=== PATIENT | male | born 1950 | race Caucasian/White ===

== ENCOUNTER → 2016-12-02 | Outpatient (CLI) | payer MEDICARE ==
[~2016-12-02] MED LIST: ADVIL200 M1 PO; ADVIL200 MG PO; ALLOPURINOL100 MG PO; AMLODIPINE10 MG PO; AMLODIPINE5 MG PO; ASPIRIN CHEWABL81 MG PO; ASPIRIN325 MG PO; ASPIRIN80 MG PO; B12,B-12,B 12500 MC1 PO; BETAPACE80 MG PO; CARDIZEM CD120 MG PO; CATAPRES-TTS 10.1 MG TD; CYMBALTA30 MG PO; Diltiazem180 MG PO; HYDR12.5C PO; K-DUR 2020 MEQ PO; K-Lor 20MEQ20 MEQ PO; K-Lyte/Cl25 MEQ PO; LANOXIN0.25 MG PO; LASIX40 MG PO; LEVAQUIN500 M2 PO; LISINOPRIL10 M1 PO; LISINOPRIL20 MG PO; LOPRESSOR100 MG PO; LOPRESSOR50 M1 PO; LORAZEPAM0.5 MG PO; METFORMIN1000 MG PO; MOBIC15 MG PO; Micro K10 MEQ PO; NADOLOL40 MG PO; PANTOPRAZOLE40 M1 PO; SOTALOL HCL80 MG PO; THERAGRAN1 TA1 PO; TOPROL XL100 MG PO; TOPROL XL50 M1 PO; XANAX0.25 MG PO; XARE20MG PO; XARELTO20 MG PO
[2016-12-02 09:16] LABS: BILIRUBIN NEGATIVE (NEGATIVE); BLOOD NEGATIVE (NEGATIVE); CLARITY CLEAR (CLEAR); COLOR YELLOW (YELLOW); GLUCOSE NEGATIVE (NEGATIVE); KETONE NEGATIVE (NEGATIVE); LEUKO ESTERASE NEGATIVE (NEGATIVE); NITRITE NEGATIVE (NEGATIVE); PH 6.5 (5.0-9.0); PROTEIN NEGATIVE (NEGATIVE); SPECIFIC GRAVITY 1.015 (1.005-1.030)
[2016-12-02 09:56] LABS: ALBUMIN 3.3 gm/dl (3.1-4.5); PHOSPHOROUS 2.6 mg/dL (2.5-4.9); POTASSIUM 4.1 mmol/L (3.5-5.1)
[2016-12-02 10:33] LABS: BACTERIA 1+
== END | disposition home or self-care (01) ==
LOC: LAB 08:52
PROVIDERS: Internal Medicine Nephrology
DX: I10 Essential (primary) hypertension (principal)

== ENCOUNTER → 2017-04-27 | Outpatient (CLI) | payer MEDICARE ==
[2017-04-27 08:36] LABS: BASO # 0.1 10*3/uL (0.0-0.1); BASO % 0.9 % (0.0-1.0); EOS # 0.3 10*3/uL (0.0-0.4); EOS % 5.1 % (1.0-4.0); HEMATOCRIT 41.6 % (42.0-52.0); HEMOGLOBIN 14.3 g/dl (14.0-18.0); LYMPH # 0.9 10*3/uL (1.3-4.4); LYMPH % 16.8 % (27.0-41.0); MEAN CELL VOLUME 84.6 fl (80.0-94.0); MEAN CORPUSCULAR HGB 29.1 pg (27.0-31.0); MEAN CORPUSCULAR HGB CONC 34.4 g/dl (33.0-37.0); MONO # 0.5 10*3/uL (0.1-1.0); MONO % 9.2 % (3.0-9.0); NEUT # 3.8 10*3/uL (2.3-7.9); NEUT % 67.6 % (47.0-73.0); PLATELET COUNT AUTOMATED 193 10*3/uL (130-400); RED BLOOD COUNT 4.92 10*6/uL (4.50-5.90); RED CELL DISTRI WIDTH 12.9 % (0-14.5); WHITE BLOOD COUNT 5.5 10*3/uL (4.8-10.8)
[2017-04-27 09:06] LABS: ALBUMIN 3.4 gm/dl (3.1-4.5); CREATININE 1.67 mg/dL (0.70-1.30); POTASSIUM 4.2 mmol/L (3.5-5.1); TOTAL PROTEIN 7.2 gm/dL (6.4-8.2)
[2017-04-27 09:15] LABS: THYROID STIM HORMONE (HS) 1.68 uIU/ml (0.358-4.75)
== END | disposition home or self-care (01) ==
LOC: LAB 08:16
PROVIDERS: Internal Medicine
DX: E11.9 Type 2 diabetes mellitus without complications (principal); I10 Essential (primary) hypertension; M10.071 Idiopathic gout, right ankle and foot

== ENCOUNTER → 2017-07-22 | Outpatient (CLI) | payer MEDICARE ==
[2017-07-22 09:10] LABS: BILIRUBIN NEGATIVE (NEGATIVE); BLOOD NEGATIVE (NEGATIVE); CLARITY CLEAR (CLEAR); COLOR YELLOW (YELLOW); GLUCOSE NEGATIVE (NEGATIVE); KETONE NEGATIVE (NEGATIVE); LEUKO ESTERASE NEGATIVE (NEGATIVE); NITRITE NEGATIVE (NEGATIVE); PH 5.5 (5.0-9.0)
[2017-07-22 09:28] LABS: ALBUMIN 3.1 gm/dl (3.1-4.5); CREATININE 1.98 mg/dL (0.70-1.30); PHOSPHOROUS 3.5 mg/dL (2.5-4.9); POTASSIUM 4.3 mmol/L (3.5-5.1)
[2017-07-22 09:48] LABS: BACTERIA TRACE
== END | disposition home or self-care (01) ==
LOC: LAB 07:56
PROVIDERS: Internal Medicine Nephrology
DX: I10 Essential (primary) hypertension (principal)

== ENCOUNTER → 2018-06-15 | Outpatient (CLI) | payer MEDICARE | END | disposition home or self-care (01) | LOC: RESCLI 08:01 | DX: I12.9 Hypertensive chronic kidney disease with stage 1 through stage 4 chronic kidney disease, or unspecified chronic kidney disease (principal); E11.22 Type 2 diabetes mellitus with diabetic chronic kidney disease; N18.9 Chronic kidney disease, unspecified; I48.0 Paroxysmal atrial fibrillation; K21.9 Gastro-esophageal reflux disease without esophagitis; G47.33 Obstructive sleep apnea (adult) (pediatric); M10.9 Gout, unspecified; N52.2 Drug-induced erectile dysfunction; F41.9 Anxiety disorder, unspecified; E78.5 Hyperlipidemia, unspecified ==

== ENCOUNTER → 2018-06-21 | Outpatient (CLI) | payer MEDICARE | END | disposition home or self-care (01) | LOC: LAB 07:58 | DX: Z12.5 Encounter for screening for malignant neoplasm of prostate (principal); I10 Essential (primary) hypertension; E79.0 Hyperuricemia without signs of inflammatory arthritis and tophaceous disease; Z79.899 Other long term (current) drug therapy ==

== ENCOUNTER → 2018-08-15 | Outpatient (CLI) | payer MEDICARE ==
[~2018-08-15] MED LIST changes: +ATIVAN1 MG PO; +BETAPACE120 MG PO; +GLUCOPHAGE1000 MG PO; +GLYBURIDE5 MG PO; +HYDR25T PO; +K-LOR 20MEQ20 ME1 PO; -K-Lor 20MEQ20 MEQ PO; -METFORMIN1000 MG PO; +ZESTRIL20 MG PO
== END | disposition home or self-care (01) ==
DX: I12.9 Hypertensive chronic kidney disease with stage 1 through stage 4 chronic kidney disease, or unspecified chronic kidney disease (principal); E11.22 Type 2 diabetes mellitus with diabetic chronic kidney disease; E11.319 Type 2 diabetes mellitus with unspecified diabetic retinopathy without macular edema; N18.3 Chronic kidney disease, stage 3 (moderate); I48.0 Paroxysmal atrial fibrillation; K21.9 Gastro-esophageal reflux disease without esophagitis; G47.33 Obstructive sleep apnea (adult) (pediatric); M10.9 Gout, unspecified; N52.2 Drug-induced erectile dysfunction; F41.9 Anxiety disorder, unspecified; E78.5 Hyperlipidemia, unspecified; Z79.899 Other long term (current) drug therapy; Z88.8 Allergy status to other drugs, medicaments and biological substances; Z79.82 Long term (current) use of aspirin

== ENCOUNTER → 2018-10-03 | Outpatient (CLI) | payer MEDICARE ==
[2018-10-03 14:47] LABS: BASO % 0.4 % (0.0-1.0); EOS # 0.3 10*3/uL (0.0-0.4); EOS % 5.7 % (1.0-4.0); HEMATOCRIT 41.5 % (42.0-52.0); HEMOGLOBIN 13.7 g/dl (14.0-18.0); LYMPH % 20.5 % (27.0-41.0); MEAN CELL VOLUME 85.4 fl (80.0-94.0); MEAN CORPUSCULAR HGB 28.2 pg (27.0-31.0); MEAN PLATELET VOLUME 9.3 fl (9.6-12.3); MONO # 0.7 10*3/uL (0.1-1.0); MONO % 13.8 % (3.0-9.0); NEUT % 59.4 % (47.0-73.0); PLATELET COUNT AUTOMATED 220 10*3/uL (130-400); RED BLOOD COUNT 4.86 10*6/uL (4.50-5.90); RED CELL DISTRI WIDTH 12.5 % (0-14.5); WHITE BLOOD COUNT 5.1 10*3/uL (4.8-10.8)
[2018-10-03 15:16] LABS: ALBUMIN 3.1 gm/dl (3.1-4.5); ALKALINE PHOSPHATASE 84 U/L (45-117); BUN 25 mg/dl (7-24); CHLORIDE 106 mmol/L (98-107); CHOLESTEROL 142 mg/dL (<200); CREATININE 1.35 mg/dL (0.70-1.30); HDL CHOLESTEROL 38 mg/dl (40-60); LDL CHOLESTEROL 76 mg/dL (9-159); SGOT/AST 14 IU/L (3-35); SGPT/ALT 18 U/L (12-78); SODIUM 141 mmol/L (136-145); TOTAL PROTEIN 7.4 gm/dL (6.4-8.2); TRIGLYCERIDES 141 mg/dl (<150); VLDL CHOLESTEROL 28 mg/dL (6-40)
== END | disposition home or self-care (01) ==
LOC: LAB 01:29 → RESCLI 01:29
PROVIDERS: Internal Medicine; Student in an Organized Health Care Education/Training Program
DX: Z12.5 Encounter for screening for malignant neoplasm of prostate (principal); I48.0 Paroxysmal atrial fibrillation; I12.9 Hypertensive chronic kidney disease with stage 1 through stage 4 chronic kidney disease, or unspecified chronic kidney disease; E11.22 Type 2 diabetes mellitus with diabetic chronic kidney disease; E11.319 Type 2 diabetes mellitus with unspecified diabetic retinopathy without macular edema; N18.3 Chronic kidney disease, stage 3 (moderate); K21.9 Gastro-esophageal reflux disease without esophagitis; G47.33 Obstructive sleep apnea (adult) (pediatric); M10.9 Gout, unspecified; N52.2 Drug-induced erectile dysfunction; E78.5 Hyperlipidemia, unspecified

== ENCOUNTER → 2019-01-03 | Outpatient (CLI) | payer MEDICARE ==
[2019-01-03 08:34] LABS: BASO # 0.1 10*3/uL (0.0-0.1); BASO % 0.8 % (0.0-1.0); EOS # 0.4 10*3/uL (0.0-0.4); EOS % 5.9 % (1.0-4.0); HEMATOCRIT 45.4 % (42.0-52.0); HEMOGLOBIN 15.2 g/dl (14.0-18.0); LYMPH # 1.3 10*3/uL (1.3-4.4); LYMPH % 21.1 % (27.0-41.0); MEAN CELL VOLUME 83.8 fl (80.0-94.0); MEAN CORPUSCULAR HGB CONC 33.5 g/dl (33.0-37.0); MEAN PLATELET VOLUME 9.5 fl (9.6-12.3); MONO # 0.6 10*3/uL (0.1-1.0); MONO % 9.6 % (3.0-9.0); NEUT # 3.7 10*3/uL (2.3-7.9); NEUT % 62.3 % (47.0-73.0); PLATELET COUNT AUTOMATED 208 10*3/uL (130-400); RED BLOOD COUNT 5.42 10*6/uL (4.50-5.90); RED CELL DISTRI WIDTH 13.2 % (0-14.5); WHITE BLOOD COUNT 5.9 10*3/uL (4.8-10.8)
[2019-01-03 08:46] LABS: BILIRUBIN NEGATIVE (NEGATIVE); BLOOD NEGATIVE (NEGATIVE); CLARITY CLEAR (CLEAR); COLOR YELLOW (YELLOW); GLUCOSE NEGATIVE (NEGATIVE); KETONE NEGATIVE (NEGATIVE); LEUKO ESTERASE TRACE (NEGATIVE); NITRITE NEGATIVE (NEGATIVE); PH 5.5 (5.0-9.0); SPECIFIC GRAVITY 1.025 (1.005-1.030)
[2019-01-03 08:57] LABS: ALBUMIN 3.3 gm/dl (3.1-4.5); CREATININE 1.46 mg/dL (0.70-1.30); PHOSPHOROUS 3.5 mg/dL (2.5-4.9); URIC ACID 9.6 mg/dL (3.5-7.2)
[2019-01-03 09:33] LABS: HYALINE CAST 0-2; MUCOUS 2+; RBC 0-2 rbc/hpf (0-2)
== END | disposition home or self-care (01) ==
LOC: LAB 08:02
PROVIDERS: Internal Medicine Nephrology
DX: I10 Essential (primary) hypertension (principal); E79.0 Hyperuricemia without signs of inflammatory arthritis and tophaceous disease; Z79.899 Other long term (current) drug therapy

== ENCOUNTER 2019-02-08 18:51 | Inpatient (IN) | payer MEDICARE ==
[2019-02-08] VITALS (9 sets, daily range): BP systolic 138–205; BP diastolic 60–90
[~2019-02-08] VITALS: Ht 187.9 cm; Wt 114.6 kg
--- NOTE | ~2019-02-08 | EKG ---
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
--- NOTE | ~2019-02-08 | EKG ---
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
--- NOTE | ~2019-02-08 | EKG ---
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
[~2019-02-08 18:51] MED LIST changes: -ATIVAN1 MG PO; -BETAPACE120 MG PO; -GLYBURIDE5 MG PO; -HYDR25T PO; -ZESTRIL20 MG PO
[2019-02-08 19:31] LABS: BASO % 0.4 % (0.0-1.0); EOS # 0.3 10*3/uL (0.0-0.4); EOS % 2.5 % (1.0-4.0); HEMATOCRIT 44.8 % (42.0-52.0); HEMOGLOBIN 15.4 g/dl (14.0-18.0); LYMPH # 0.9 10*3/uL (1.3-4.4); LYMPH % 9.5 % (27.0-41.0); MEAN CELL VOLUME 83.1 fl (80.0-94.0); MEAN CORPUSCULAR HGB 28.6 pg (27.0-31.0); MEAN CORPUSCULAR HGB CONC 34.4 g/dl (33.0-37.0); MEAN PLATELET VOLUME 10.1 fl (9.6-12.3); MONO # 0.6 10*3/uL (0.1-1.0); MONO % 6.5 % (3.0-9.0); NEUT % 80.8 % (47.0-73.0); PLATELET COUNT AUTOMATED 198 10*3/uL (130-400); RED BLOOD COUNT 5.39 10*6/uL (4.50-5.90); RED CELL DISTRI WIDTH 13.1 % (0-14.5); WHITE BLOOD COUNT 9.9 10*3/uL (4.8-10.8)
[2019-02-08 19:39] LABS: INTERNATIONAL NORM RATIO 1.1 (2.0-3.5)
[2019-02-08 19:48] LABS: ALBUMIN 3.6 gm/dl (3.1-4.5); ALKALINE PHOSPHATASE 63 U/L (45-117); BUN 23 mg/dl (7-24); CHLORIDE 107 mmol/L (98-107); CREATININE 1.35 mg/dL (0.70-1.30); POTASSIUM 4.3 mmol/L (3.5-5.1); SGOT/AST 19 IU/L (3-35); SGPT/ALT 18 U/L (12-78); SODIUM 141 mmol/L (136-145); TOTAL PROTEIN 7.2 gm/dL (6.4-8.2)
[2019-02-08 19:54] LABS: TROPONIN I < 0.015 ng/ml (<0.045)
[2019-02-08 22:00] LABS: BILIRUBIN NEGATIVE (NEGATIVE); BLOOD NEGATIVE (NEGATIVE); CLARITY CLEAR (CLEAR); COLOR YELLOW (YELLOW); GLUCOSE NEGATIVE (NEGATIVE); KETONE TRACE (NEGATIVE); LEUKO ESTERASE NEGATIVE (NEGATIVE); NITRITE NEGATIVE (NEGATIVE); PH 5.5 (5.0-9.0); UROBILINOGEN 0.2 E.U./dl (0.2-1.0)
[2019-02-08 22:05] LABS: BACTERIA TRACE; EPITHELIAL CELLS 0-2; WBC 0-2 wbc/hpf (0-5)
--- NOTE | 2019-02-08 22:20 | NUR ---
A 68, admitted to , under the services of BRIGETTE Adames DO with a diagnosis of HTN EMERGENCY. Chief complaint is HIGH BP. Patient arrived via bed from ER. Monitor applied. Initial assessment completed. Vital signs taken and recorded. BRIGETTE ADAMES DO notified of admission to the unit. Orders received. See assessment for past medical history, medications and allergies. Patient and/or family oriented to unit. [facility] visitation policy reviewed. Clothing/patient valuable form completed. BRANDON HAMLIN
[2019-02-08] MEDS ORDERED: HYDR25T PO (23:18)
[2019-02-08] MEDS ORDERED: GLYBURIDE5 MG PO (23:19)
[2019-02-08] MEDS ORDERED: BETAPACE120 MG PO (23:19)
--- NOTE | 2019-02-08 23:49 | NUR ---
MEDICATIONS VERIFIED BY A COUPLE MEDS BROUGHT IN BY PATIENT AND GOING OVER MED REC AVAIABLE
[2019-02-09 06:19] LABS: BASO % 0.7 % (0.0-1.0); EOS # 0.2 10*3/uL (0.0-0.4); EOS % 4.7 % (1.0-4.0); HEMATOCRIT 43.9 % (42.0-52.0); HEMOGLOBIN 14.7 g/dl (14.0-18.0); LYMPH # 1.1 10*3/uL (1.3-4.4); LYMPH % 24.3 % (27.0-41.0); MEAN CELL VOLUME 82.4 fl (80.0-94.0); MEAN CORPUSCULAR HGB 27.6 pg (27.0-31.0); MEAN CORPUSCULAR HGB CONC 33.5 g/dl (33.0-37.0); MEAN PLATELET VOLUME 10.5 fl (9.6-12.3); MONO # 0.5 10*3/uL (0.1-1.0); MONO % 11.7 % (3.0-9.0); NEUT # 2.6 10*3/uL (2.3-7.9); NEUT % 58.4 % (47.0-73.0); PLATELET COUNT AUTOMATED 190 10*3/uL (130-400); RED BLOOD COUNT 5.33 10*6/uL (4.50-5.90); WHITE BLOOD COUNT 4.5 10*3/uL (4.8-10.8)
[2019-02-09 06:46] LABS: BUN 20 mg/dl (7-24); CHLORIDE 107 mmol/L (98-107); CREATININE 1.19 mg/dL (0.70-1.30); FREE T4 1.47 ng/dl (0.76-1.46); POTASSIUM 3.9 mmol/L (3.5-5.1); SODIUM 141 mmol/L (136-145)
--- NOTE | 2019-02-09 06:59 | NUR ---
DR. RAMSEY PAGED AT THIS TIME
[2019-02-09 07:50] LABS: VITAMIN D, 25-HYDROXY 38.8 ng/mL (30-100)
[2019-02-09 08:00] VITALS: BP 164/88
--- NOTE | 2019-02-09 08:00 | NUR ---
Patient resting quietly with no c/o discomfort. Respirations easy and regular. Vital signs stable. No overt distress. DOMINGO CALDERON R
--- NOTE | 2019-02-09 09:00 | NUR ---
DR Yoan ORTIZ NOTIFIED OF PT HEART RATE/BLOOD PRESSURE AT THIS TIME. OK TO GIVE SCHEDULED MEDS.
[2019-02-09] MEDS ORDERED: ZESTRIL20 MG PO (12:43)
--- NOTE | 2019-02-09 14:26 | NUR ---
Discharge instructions reviewed with patient/family. Patient receptive and verbalizes understanding. Follow-up care arranged. Written instructions given to patient/family. DOMINGO CALDERON
--- NOTE | 2019-02-09 14:42 | NUR ---
PT CALLED AND STATES HE WAS TAKEN OFF LISINOPRIL AT HOME AND HE TAKES LOSARTAN 50MG DAILY. DR CONTI CALLED NOTIFIED. HE DIRECTED THIS NURSE TO CALL PT AND TELL HIM TO TAKE LOSARTAN 50MG BID. NO LISINOPRIL... AND TO NOTIFY PCP AND DR RAMSEY AT HIS FOLLOW UP APPTS. PT CALLED AND HE STATES UNDERSTANDING OF INSTRUCTIONS.
== END 2019-02-09 14:26 | disposition home or self-care (01) | DRG 305 ==
LOC: ED 18:51 → EDHOLD 20:37 → 4E 21:11
PROVIDERS: Emergency Medicine; Family Medicine; ADMIT Emergency Medicine
DX: I16.1 Hypertensive emergency (principal); I10 Essential (primary) hypertension; E66.9 Obesity, unspecified; E11.9 Type 2 diabetes mellitus without complications; K21.9 Gastro-esophageal reflux disease without esophagitis; I48.0 Paroxysmal atrial fibrillation; Z96.653 Presence of artificial knee joint, bilateral; Z82.49 Family history of ischemic heart disease and other diseases of the circulatory system; Z80.0 Family history of malignant neoplasm of digestive organs; Z79.84 Long term (current) use of oral hypoglycemic drugs; Z79.82 Long term (current) use of aspirin; Z79.899 Other long term (current) drug therapy; Z68.32 Body mass index [BMI] 32.0-32.9, adult

== ENCOUNTER 2019-02-12 04:56 | Emergency (ER) | payer MEDICARE ==
[~2019-02-12] VITALS: Ht 187.9 cm; Wt 113.9 kg
--- NOTE | ~2019-02-12 | EKG ---
[place], [place] ELECTROCARDIOGRAM REPORT NAME: ALEXI TUCKER UNIT #: [id number] ROOM: DOCTOR: EPIPHANY DRAFT REPORT BIRTHDATE: [birth year] [facility] Test Date: 2019-02-12 Test Time: 05:06:21 Pat Name: ALEXI TUCKER Department: ER Room: Gender: International Marketing Specialist: Earl Moreno : 1950 Requested By: OLYA REBOLLEDO Order Number: [id number] Reading MD: Gisela Dennis MD Measurements Intervals [place] Rate: 58 P: MO: QRS: -22 QRSD: 113 T: 3 QT: 457 QTc: 449 Interpretive Statements Sinus rhythm Borderline intraventricular conduction delay Abnormal R-wave progression, late transition Borderline T abnormalities, inferior leads Compared to ECG 02/09/2019 01:31:31 Junctional rhythm now present Sinus rhythm no longer present T-wave abnormality still present Electronically Signed On 02-13-2019 12:22:42 PDT by Gisela Dennis MD CM:EKGRPT:ELECTROCARDIOGRAM REPORT 0506 1222 OLYA REBOLLEDO MD EPIPHANY DRAFT REPORT OLYA REBOLLEDO MD
[~2019-02-12 04:56] MED LIST changes: +BETAPACE120 MG PO; +GLYBURIDE5 MG PO; +HYDR25T PO; +ZESTRIL20 MG PO
[2019-02-12] MEDS ORDERED: ATIVAN1 MG PO (06:25)
[2019-02-12 06:30] LABS: BUN 45 mg/dl (7-24); CHLORIDE 107 mmol/L (98-107); CREATININE 2.05 mg/dL (0.70-1.30); POTASSIUM 3.8 mmol/L (3.5-5.1); SODIUM 142 mmol/L (136-145)
[2019-02-12 06:35] LABS: TROPONIN I < 0.015 ng/ml (<0.045)
== END 2019-02-12 06:38 | disposition home or self-care (01) ==
LOC: ED 04:56
PROVIDERS: Emergency Medicine Emergency Medical Services
DX: F41.9 Anxiety disorder, unspecified (principal); I10 Essential (primary) hypertension; K21.9 Gastro-esophageal reflux disease without esophagitis; E66.9 Obesity, unspecified; E11.9 Type 2 diabetes mellitus without complications; I48.0 Paroxysmal atrial fibrillation; Z68.34 Body mass index [BMI] 34.0-34.9, adult; Z79.899 Other long term (current) drug therapy; Z79.82 Long term (current) use of aspirin

== ENCOUNTER → 2019-02-18 | Outpatient (CLI) | payer MEDICARE ==
[~2019-02-18] MED LIST changes: +ATIVAN1 MG PO
== END | disposition home or self-care (01) ==
LOC: RESCLI 00:47
DX: I48.0 Paroxysmal atrial fibrillation (principal); E11.9 Type 2 diabetes mellitus without complications; I12.9 Hypertensive chronic kidney disease with stage 1 through stage 4 chronic kidney disease, or unspecified chronic kidney disease; N18.3 Chronic kidney disease, stage 3 (moderate); F41.9 Anxiety disorder, unspecified; K21.9 Gastro-esophageal reflux disease without esophagitis; Z79.899 Other long term (current) drug therapy

== ENCOUNTER → 2019-02-20 | Day surgery (SDC) | payer MEDICARE ==
[~2019-02-20] VITALS: Ht 187.9 cm; Wt 112.9 kg
--- NOTE | ~2019-02-20 | O ---
[place], [place] OPERATIVE NOTE NAME: ALEXI TUCKER [facility] #: [id number] UNIT #: [id number] ROOM: DOCTOR: ABDELRAHMAN DUMONT,MINGO BIRTHDATE: [birth year] DOS: 02/20/2019 GASTROENDOSCOPIC REPORT INDICATIONS: This is a 68-year-old patient who presented with dyspepsia, history of blood in the stool, the patient on Xarelto and aspirin. ALLERGIES: No known medications. FAMILY HISTORY: Esophageal carcinoma. PAST SURGICAL HISTORY: Total bilateral knee. PAST MEDICAL HISTORY: Hypercholesterolemia, hypertension, diabetes, atrial fibrillation. SOCIAL HISTORY: Nonsmoker. Social alcohol consumer. PROCEDURE: Today's procedure part of investigation is panendoscopy and colonoscopy. PREMEDICATION: Propofol. SCOPE: Olympus forward-viewing gastroscope Q10 video. REPORT: After putting the patient in left lateral position and application of lubricant to the scope, the scope was introduced. Thereafter, under direct visualization, advanced through the length of esophagus without difficulty. Gastritis was noticed. Antral biopsy obtained. Duodenal bulb, second and third part within normal limits. The patient extubated, tolerated the procedure well. IMPRESSION: Gastritis. PLAN AND DISCUSSION: Reviewed. MEDICATION LIST: The patient has been on pantoprazole 40 mg daily. On the other hand, the patient has been on aspirin and multiple other medication that could have contributed to his gastritis. We will proceed with the same medication. For acid breakthrough, we can use Gaviscon Extra Strength 1 p.r.n. Furthermore, we are going to proceed with colonoscopic evaluation for GI bleed. INDICATIONS: The patient is 68 years old, who is on Xarelto and aspirin, rectal bleed. PROCEDURE: Today's procedure part of investigation is colonoscopy. PREMEDICATION: Propofol. SCOPE: Olympus forward-viewing colonoscope 10L video. [place], [place] OPERATIVE NOTE NAME: ALEXI TUCKER Rafiq UNIT #: [id number] ROOM: DOCTOR: MINGO QUICK MD BIRTHDATE: [birth year] REPORT: After putting the patient in left lateral position and application of lubricant to the scope, the scope was introduced. Thereafter, under direct visualization, advanced through the length of colon without difficulty. Diverticulosis was noticed. Base of the cecum explored, appendiceal orifice identified. Ileocecal valve defined. Mucosa and vascularity carefully examined. There was no ulceration. There was no lesion ____ rectal pouch. GI reflexion of the scope reveals dentated line to be benign. There was one single small hemorrhoid. This could be reactive post colonoscopy prep. This is 1+ internal and no active bleeding noticed. The patient extubated, tolerated the procedure well. IMPRESSION: Small isolated hemorrhoid at 6 o'clock position, the patient in the left lateral position, diverticulosis. PLAN AND DISCUSSION: Due to the fact the patient has been on Xarelto and aspirin, his bleeding has become more evident with a small insult to the area. We will manage hemorrhoids with Preparation-H suppositories on the counter conservative management as well as upper GI. We are going to continue with the preexisting medication in addition to Gaviscon p.r.n. and continuation of pantoprazole 40 mg daily. Thank you very much indeed. MINGO QUICK MD CM:OPRECORD:OPERATIVE NOTE 1235 1406 MINGO QUICK MD 02/20/19 1405 interface
[2019-02-20 11:37] VITALS: BP 155/80
[2019-02-20 12:25] VITALS: BP 125/60
[2019-02-20 12:40] VITALS: BP 143/67
[2019-02-20 12:55] VITALS: BP 128/63
== END | disposition home or self-care (01) ==
LOC: SDC 02-18 16:15
DX: K29.50 Unspecified chronic gastritis without bleeding (principal); E78.00 Pure hypercholesterolemia, unspecified; E11.9 Type 2 diabetes mellitus without complications; I48.91 Unspecified atrial fibrillation; I11.0 Hypertensive heart disease with heart failure; I50.9 Heart failure, unspecified; K21.9 Gastro-esophageal reflux disease without esophagitis; M10.9 Gout, unspecified; M19.90 Unspecified osteoarthritis, unspecified site; E66.9 Obesity, unspecified; Z68.31 Body mass index [BMI] 31.0-31.9, adult; Z79.82 Long term (current) use of aspirin; Z79.01 Long term (current) use of anticoagulants; Z96.653 Presence of artificial knee joint, bilateral; Z72.89 Other problems related to lifestyle; Z98.890 Other specified postprocedural states; Z87.891 Personal history of nicotine dependence; Z79.899 Other long term (current) drug therapy; Z80.0 Family history of malignant neoplasm of digestive organs; Z82.49 Family history of ischemic heart disease and other diseases of the circulatory system

== ENCOUNTER → 2019-02-25 | Outpatient (CLI) | payer MEDICARE ==
[2019-02-25 16:27] LABS: CREATININE 1.52 mg/dL (0.70-1.30); POTASSIUM 3.8 mmol/L (3.5-5.1)
[2019-02-26 11:11] LABS: CREATININE,URINE 192.7 mg/dL (Not Estab.)
== END | disposition home or self-care (01) ==
LOC: RESCLI 10:17
PROVIDERS: Internal Medicine
DX: Z00.00 Encounter for general adult medical examination without abnormal findings (principal); N17.9 Acute kidney failure, unspecified; I12.9 Hypertensive chronic kidney disease with stage 1 through stage 4 chronic kidney disease, or unspecified chronic kidney disease; N18.3 Chronic kidney disease, stage 3 (moderate); Z79.899 Other long term (current) drug therapy

== ENCOUNTER 2019-03-02 18:40 | Emergency (ER) | payer MEDICARE ==
[~2019-03-02] VITALS: Ht 187.9 cm; Wt 109.3 kg
== END 2019-03-02 20:18 | disposition home or self-care (01) ==
LOC: ED 18:40
DX: I10 Essential (primary) hypertension (principal); Z79.82 Long term (current) use of aspirin; Z79.899 Other long term (current) drug therapy

== ENCOUNTER 2019-03-08 12:30 | Emergency (ER) | payer MEDICARE ==
[~2019-03-08] VITALS: Ht 187.9 cm; Wt 108.9 kg
--- NOTE | ~2019-03-08 | EKG ---
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
[2019-03-08 14:36] LABS: BASO % 0.2 % (0.0-1.0); EOS # 0.4 10*3/uL (0.0-0.4); EOS % 5.5 % (1.0-4.0); HEMATOCRIT 43.5 % (42.0-52.0); HEMOGLOBIN 14.6 g/dl (14.0-18.0); LYMPH # 0.9 10*3/uL (1.3-4.4); LYMPH % 13.8 % (27.0-41.0); MEAN CELL VOLUME 83.7 fl (80.0-94.0); MEAN CORPUSCULAR HGB 28.1 pg (27.0-31.0); MEAN CORPUSCULAR HGB CONC 33.6 g/dl (33.0-37.0); MONO # 0.5 10*3/uL (0.1-1.0); MONO % 8.5 % (3.0-9.0); NEUT # 4.5 10*3/uL (2.3-7.9); NEUT % 71.8 % (47.0-73.0); PLATELET COUNT AUTOMATED 200 10*3/uL (130-400); RED CELL DISTRI WIDTH 12.9 % (0-14.5); WHITE BLOOD COUNT 6.3 10*3/uL (4.8-10.8)
[2019-03-08 14:53] LABS: ALBUMIN 3.5 gm/dl (3.1-4.5); ALKALINE PHOSPHATASE 70 U/L (45-117); BUN 34 mg/dl (7-24); CHLORIDE 104 mmol/L (98-107); POTASSIUM 3.7 mmol/L (3.5-5.1); SGOT/AST 14 IU/L (3-35); SGPT/ALT 25 U/L (12-78); SODIUM 138 mmol/L (136-145); TOTAL PROTEIN 7.2 gm/dL (6.4-8.2)
[2019-03-08 14:57] LABS: TROPONIN I < 0.015 ng/ml (<0.045)
== END 2019-03-08 15:31 | disposition home or self-care (01) ==
LOC: ED 12:30
PROVIDERS: Nurse Practitioner Family
DX: I13.0 Hypertensive heart and chronic kidney disease with heart failure and stage 1 through stage 4 chronic kidney disease, or unspecified chronic kidney disease (principal); E11.22 Type 2 diabetes mellitus with diabetic chronic kidney disease; N18.9 Chronic kidney disease, unspecified; I50.9 Heart failure, unspecified; K21.9 Gastro-esophageal reflux disease without esophagitis; I48.91 Unspecified atrial fibrillation; Z79.899 Other long term (current) drug therapy; Z79.82 Long term (current) use of aspirin

== ENCOUNTER → 2019-05-14 | Outpatient (CLI) | payer MEDICARE | END | disposition home or self-care (01) | LOC: RESCLI 14:47 | DX: M54.31 Sciatica, right side (principal) ==

== ENCOUNTER → 2019-05-20 | Outpatient (CLI) | payer MEDICARE | END | disposition home or self-care (01) | LOC: RAD 10:45 | DX: M51.36 Other intervertebral disc degeneration, lumbar region (principal) ==

== ENCOUNTER → 2019-05-29 | Outpatient (CLI) | payer MEDICARE ==
[2019-05-29 15:55] LABS: BASO % 0.4 % (0.0-1.0); EOS # 0.3 10*3/uL (0.0-0.4); EOS % 3.2 % (1.0-4.0); HEMATOCRIT 42.8 % (42.0-52.0); HEMOGLOBIN 14.3 g/dl (14.0-18.0); LYMPH % 12.5 % (27.0-41.0); MEAN CELL VOLUME 84.9 fl (80.0-94.0); MEAN CORPUSCULAR HGB 28.4 pg (27.0-31.0); MEAN CORPUSCULAR HGB CONC 33.4 g/dl (33.0-37.0); MEAN PLATELET VOLUME 10.5 fl (9.6-12.3); MONO # 0.9 10*3/uL (0.1-1.0); MONO % 10.8 % (3.0-9.0); NEUT # 5.9 10*3/uL (2.3-7.9); NEUT % 72.7 % (47.0-73.0); PLATELET COUNT AUTOMATED 207 10*3/uL (130-400); RED BLOOD COUNT 5.04 10*6/uL (4.50-5.90); RED CELL DISTRI WIDTH 12.9 % (0-14.5); WHITE BLOOD COUNT 8.1 10*3/uL (4.8-10.8)
== END | disposition home or self-care (01) ==
LOC: LAB 15:17
PROVIDERS: Orthopaedic Surgery
DX: M54.5 Low back pain (principal)

== ENCOUNTER → 2019-06-12 | Outpatient (CLI) | payer MEDICARE | END | disposition home or self-care (01) | LOC: RESCLI 01:14 | DX: I48.0 Paroxysmal atrial fibrillation (principal); K21.9 Gastro-esophageal reflux disease without esophagitis; E78.5 Hyperlipidemia, unspecified; F41.9 Anxiety disorder, unspecified; I12.9 Hypertensive chronic kidney disease with stage 1 through stage 4 chronic kidney disease, or unspecified chronic kidney disease; E11.22 Type 2 diabetes mellitus with diabetic chronic kidney disease; N18.3 Chronic kidney disease, stage 3 (moderate); M48.061 Spinal stenosis, lumbar region without neurogenic claudication; I71.4 Abdominal aortic aneurysm, without rupture; Z79.899 Other long term (current) drug therapy ==

== ENCOUNTER → 2019-07-15 | Outpatient (CLI) | payer MEDICARE ==
[2019-07-15 14:36] LABS: BASO # 0.1 10*3/uL (0.0-0.1); BASO % 0.8 % (0.0-1.0); EOS # 0.3 10*3/uL (0.0-0.4); EOS % 5.2 % (1.0-4.0); HEMATOCRIT 43.8 % (42.0-52.0); LYMPH # 1.4 10*3/uL (1.3-4.4); LYMPH % 22.2 % (27.0-41.0); MEAN CELL VOLUME 86.1 fl (80.0-94.0); MEAN CORPUSCULAR HGB 29.5 pg (27.0-31.0); MEAN CORPUSCULAR HGB CONC 34.2 g/dl (33.0-37.0); MEAN PLATELET VOLUME 10.5 fl (9.6-12.3); MONO # 0.8 10*3/uL (0.1-1.0); MONO % 12.5 % (3.0-9.0); NEUT # 3.7 10*3/uL (2.3-7.9); PLATELET COUNT AUTOMATED 225 10*3/uL (130-400); RED BLOOD COUNT 5.09 10*6/uL (4.50-5.90); RED CELL DISTRI WIDTH 12.2 % (0-14.5); WHITE BLOOD COUNT 6.4 10*3/uL (4.8-10.8)
[2019-07-15 15:03] LABS: CREATININE 1.52 mg/dL (0.70-1.30); POTASSIUM 4.1 mmol/L (3.5-5.1)
== END | disposition home or self-care (01) ==
LOC: LAB 13:51
PROVIDERS: Internal Medicine
DX: E11.22 Type 2 diabetes mellitus with diabetic chronic kidney disease (principal); N18.3 Chronic kidney disease, stage 3 (moderate)

== ENCOUNTER → 2019-07-17 | Outpatient (CLI) | payer MEDICARE | END | disposition home or self-care (01) | LOC: RESCLI 01:41 | DX: I12.9 Hypertensive chronic kidney disease with stage 1 through stage 4 chronic kidney disease, or unspecified chronic kidney disease (principal); E11.22 Type 2 diabetes mellitus with diabetic chronic kidney disease; N18.3 Chronic kidney disease, stage 3 (moderate); I48.0 Paroxysmal atrial fibrillation; K21.9 Gastro-esophageal reflux disease without esophagitis; E78.5 Hyperlipidemia, unspecified; F41.9 Anxiety disorder, unspecified; E53.8 Deficiency of other specified B group vitamins; M48.061 Spinal stenosis, lumbar region without neurogenic claudication; Z79.899 Other long term (current) drug therapy ==

== ENCOUNTER → 2020-02-20 | Outpatient (CLI) | payer MEDICARE ==
[~2020-02-20] MED LIST changes: +LOSARTAN POTASS50 M1 PO
== END | disposition home or self-care (01) ==
LOC: COVID19 00:17
DX: U07.1 COVID-19 (principal)

== ENCOUNTER 2020-02-21 18:50 | Inpatient (IN) | payer MEDICARE ==
[2020-02-20 22:30] VITALS: BP 101/85
[~2020-02-21] VITALS: Ht 187.9 cm; Wt 112.0 kg
[~2020-02-21 18:50] MED LIST changes: -LOSARTAN POTASS50 M1 PO
[2020-02-21 18:58] VITALS: BP 110/62
[2020-02-21 20:43] LABS: ALBUMIN 2.9 gm/dl (3.1-4.5); ALKALINE PHOSPHATASE 49 U/L (45-117); BUN 38 mg/dl (7-24); CHLORIDE 105 mmol/L (98-107); CREATININE 2.17 mg/dL (0.70-1.30); POTASSIUM 4.1 mmol/L (3.5-5.1); SGOT/AST 27 IU/L (3-35); SGPT/ALT 26 U/L (12-78); SODIUM 136 mmol/L (136-145); TOTAL PROTEIN 7.2 gm/dL (6.4-8.2)
[2020-02-21 20:45] LABS: TROPONIN I < 0.015 ng/ml (<0.045)
[2020-02-21 21:00] VITALS: BP 114/66
[2020-02-21 21:16] LABS: BASO % 0.3 % (0.0-1.0); EOS % 0.3 % (1.0-4.0); HEMATOCRIT 37.3 % (42.0-52.0); LYMPH # 0.5 10*3/uL (1.3-4.4); MEAN CELL VOLUME 83.1 fl (80.0-94.0); MEAN CORPUSCULAR HGB 27.6 pg (27.0-31.0); MEAN CORPUSCULAR HGB CONC 33.2 g/dl (33.0-37.0); MEAN PLATELET VOLUME 10.6 fl (9.6-12.3); MONO # 0.4 10*3/uL (0.1-1.0); MONO % 11.2 % (3.0-9.0); NEUT % 75.9 % (47.0-73.0); PLATELET COUNT AUTOMATED 107 10*3/uL (130-400); RED BLOOD COUNT 4.49 10*6/uL (4.50-5.90); RED CELL DISTRI WIDTH 12.6 % (0-14.5); WHITE BLOOD COUNT 3.9 10*3/uL (4.8-10.8)
[2020-02-21 22:30] VITALS: BP 101/85
--- NOTE | 2020-02-21 22:30 | NUR ---
A 69, admitted to 4E, under the services of ORLANDO Gloria DO with a diagnosis of VENESSA, UNDER INVESTIGATION FOR COVID. Chief complaint is WEAK, FATIGUE, DECREASED INTAKE, CONFUSION AT HOME. Patient arrived via stretcher from ER. Monitor applied. Initial assessment completed. Vital signs taken and recorded. ORLANDO GLORIA DO notified of admission to the unit. Orders received. See assessment for past medical history, medications and allergies. Patient and/or family oriented to unit. [facility] Clothing/patient valuable form completed. SURI FUENTES
[2020-02-22 00:15] LABS: ACT PARTIAL THROMBO TIME 32.2 SECONDS (20.0-32.1); INTERNATIONAL NORM RATIO 1.2 (2.0-3.5)
--- NOTE | 2020-02-22 01:04 | NUR ---
DR EASTON NOTIFIED OF CONSULT. NO NEW ORDERS
[2020-02-22 03:22] LABS: CLARITY CLEAR (CLEAR); COLOR YELLOW (YELLOW)
[2020-02-22 03:23] LABS: BILIRUBIN NEGATIVE (NEGATIVE); BLOOD 1+ (NEGATIVE); GLUCOSE NEGATIVE (NEGATIVE); KETONE NEGATIVE (NEGATIVE); SPECIFIC GRAVITY 1.025 (1.005-1.030); UROBILINOGEN 0.2 E.U./dl (0.2-1.0)
[2020-02-22 03:27] LABS: LEUKO ESTERASE NEGATIVE (NEGATIVE); NITRITE NEGATIVE (NEGATIVE)
[2020-02-22 03:29] LABS: BACTERIA 1+; WBC 0-2 wbc/hpf (0-5)
[2020-02-22 04:00] VITALS: BP 110/55
--- NOTE | 2020-02-22 06:14 | NUR ---
ID ANSWERING SERVICE NOTIFIED OF CONSULT
--- NOTE | 2020-02-22 06:18 | NUR ---
DR GUERRERO WILL SEE PT, STATES TO LET HER KNOW IF PT STARTS TO RUN FEVERS OR IF HIS O2 SAT <95%
[2020-02-22 06:31] LABS: BASO % 0.3 % (0.0-1.0); HEMATOCRIT 38.1 % (42.0-52.0); LYMPH # 0.6 10*3/uL (1.3-4.4); MEAN CELL VOLUME 83.4 fl (80.0-94.0); MEAN CORPUSCULAR HGB 27.4 pg (27.0-31.0); MEAN CORPUSCULAR HGB CONC 32.8 g/dl (33.0-37.0); MEAN PLATELET VOLUME 11.1 fl (9.6-12.3); MONO # 0.4 10*3/uL (0.1-1.0); NEUT # 2.4 10*3/uL (2.3-7.9); NEUT % 71.4 % (47.0-73.0); PLATELET COUNT AUTOMATED 113 10*3/uL (130-400); RED BLOOD COUNT 4.57 10*6/uL (4.50-5.90); RED CELL DISTRI WIDTH 12.8 % (0-14.5); WHITE BLOOD COUNT 3.4 10*3/uL (4.8-10.8)
[2020-02-22 06:40] LABS: ACT PARTIAL THROMBO TIME 30.6 SECONDS (20.0-32.1); INTERNATIONAL NORM RATIO 1.1 (2.0-3.5)
[2020-02-22 06:41] LABS: ALBUMIN 2.8 gm/dl (3.1-4.5); CREATININE 1.93 mg/dL (0.70-1.30); TOTAL PROTEIN 6.8 gm/dL (6.4-8.2)
[2020-02-22 06:48] LABS: FREE T4 1.48 ng/dl (0.76-1.46); THYROID STIM HORMONE (HS) 0.453 uIU/ml (0.358-4.75)
[2020-02-22 08:00] VITALS: BP 107/62
[2020-02-22 08:06] LABS: VITAMIN D, 25-HYDROXY 38.6 ng/mL (30-100)
--- NOTE | 2020-02-22 10:18 | NUR ---
Parcel Post Clerk in to talk to patient. Patient states lives at home with . There are no steps in the home. Physician: [facility] services: [facility] Patient's level of ADLs: INDEPENDENT Patient has working utilities: all working DME: none Follow-up physician's appointment after d/c: will be made by hospitalist nurse director upon discharge Does patient want to access PORTAL?: no Discharge plan discussed with patient's Thuy, she stated patient lives at home with her, he is independent in adls and ambulation, drives, she states they stay the winter in [place] and recently return to [place], she states patient will return home with her when discharged and at this time has no home needs, states she will transport patient home when discharged, case management will follow. MAURY VENCES
[2020-02-22 12:00] VITALS: BP 101/58
[2020-02-22 12:45] LABS: ABG BASE EXCESS -0.9 mmol/L (-2.0-2.0); ARTERIAL BLOOD GAS PH 7.495 (7.35-7.45)
--- NOTE | 2020-02-22 13:53 | NUR ---
, AND NOTIFIED OF POSITIVE COVID TESTING
--- NOTE | 2020-02-22 14:31 | NUR ---
Patient sustained a fall on 02/22/20, at 1410. The fall was witnessed by a staff member. The patient sustained no injury. Details: PT WITNESSES ON CAMERA SITTING ON FLOOR WITH FEET OUT IN FRONT OF HIM, PER PT HES NOT SURE HOW HE ENDED UP ON THE FLOOR " I STOOD UP AND FELT DIZZY AND SAT DOWN, THOUGHT I WAS SITTING ON THE BED AND IT WAS THE FLOOR, PER PT HE DENIES HITTING HIS HEAD BUT DOES COMPLAIN OF LEFT RIB PAIN Patient was assisted to bed. Intervention included: bandaid/drsg.applied, xray of affected area, bandaid/drsg.applied, re-orientated to environm, re-orientated to environm. Medications were reviewed. Fall signage initiated per policy. Notification of fall included: Physician. NURSINMG ART HISTORY INSTRUCTOR, Fall risk level was reassessed per policy with review of contributory medications and environmental factors. See intervention.
[2020-02-22 16:00] VITALS: BP 112/58
--- NOTE | 2020-02-22 19:30 | NUR ---
ASSUMED CARE OF PATIENT. PATIENT IS RESTING IN BED WITH EASY AND REGULAR RESPERS. ASSESSMENT IS COMPLETE. ASSISTED TO RESTROOM, AND BACK TO BED. BED IS LOW, LOCKED, ALARMED, AND CALL LIGHT IS WITHIN REACH. WILL CONTINUE TO MONITOR. SEE INTERVENTIONS.
[2020-02-22 20:00] VITALS: BP 116/64
[2020-02-22] MEDS ORDERED: LOSARTAN POTASS50 M1 PO (20:16)
[2020-02-23] VITALS: BP 106/79
--- NOTE | 2020-02-23 04:17 | NUR ---
PATIENT SLEEPING WITH EASY AND REGULAR RESPERS ON 2L VIA NC. PATIENT IS MOUTH BREATHING. CALL LIGHT IS WITHIN REACH. SPO2 98% VIA CONTINUOUS SPO2 MONITOR.
--- NOTE | 2020-02-23 05:32 | NUR ---
PATIENT AWAKE FOR AM MEDICATIONS. CALL LIGHT IS WITHIN REACH.
[2020-02-23 06:06] LABS: BASO % 0.2 % (0.0-1.0); HEMATOCRIT 39.1 % (42.0-52.0); LYMPH # 0.4 10*3/uL (1.3-4.4); LYMPH % 9.2 % (27.0-41.0); MEAN CELL VOLUME 82.5 fl (80.0-94.0); MEAN CORPUSCULAR HGB 27.4 pg (27.0-31.0); MEAN CORPUSCULAR HGB CONC 33.2 g/dl (33.0-37.0); MEAN PLATELET VOLUME 11.1 fl (9.6-12.3); MONO # 0.3 10*3/uL (0.1-1.0); MONO % 7.7 % (3.0-9.0); NEUT # 3.7 10*3/uL (2.3-7.9); NEUT % 82.4 % (47.0-73.0); PLATELET COUNT AUTOMATED 127 10*3/uL (130-400); RED BLOOD COUNT 4.74 10*6/uL (4.50-5.90); RED CELL DISTRI WIDTH 12.6 % (0-14.5); WHITE BLOOD COUNT 4.4 10*3/uL (4.8-10.8)
[2020-02-23 06:11] LABS: ALBUMIN 2.8 gm/dl (3.1-4.5); CREATININE 1.88 mg/dL (0.70-1.30); POTASSIUM 3.9 mmol/L (3.5-5.1); TOTAL PROTEIN 7.1 gm/dL (6.4-8.2)
--- NOTE | 2020-02-23 06:36 | NUR ---
CALLED DR. HSAH FOR 19 BEAT RUN OF SVT LASTING 10 SECONDS. NO NEW ORDERS AT THIS TIME.
--- NOTE | 2020-02-23 06:40 | NUR ---
GLUCOSE 196 FROM LABS.
--- NOTE | 2020-02-23 07:00 | NUR ---
CHART CHECK COMPLETE.
[2020-02-23 07:37] LABS: ABG BASE EXCESS -0.3 mmol/L (-2.0-2.0); ARTERIAL BLOOD GAS PH 7.491 (7.35-7.45)
[2020-02-23 08:00] VITALS: BP 104/60
[2020-02-23 09:32] LABS: ABG BASE EXCESS -2.2 mmol/L (-2.0-2.0); ARTERIAL BLOOD GAS PH 7.48 (7.35-7.45)
--- NOTE | 2020-02-23 09:32 | NUR ---
MI ENCOURAGED TO PRONE PER PT " CHAPIN BEEN TRYING" OFFERED TO ASSIST WITH PRONING PT REFUSED PER PT HE WILL ATTEMPT IN AN HOUR, WILL CONTINUE TO ENCOURAGE
--- NOTE | 2020-02-23 10:30 | NUR ---
PT PRONED FOR 30 MINUTES`
[2020-02-23 12:00] VITALS: BP 110/65
--- NOTE | 2020-02-23 12:08 | NUR ---
PT ENCOURGAED TO PRONE, PT ASSISTED INTO PRONE POSITION
--- NOTE | 2020-02-23 14:00 | NUR ---
PT ASSISTED INTO PRONE POSITION PT TOLERATED FOR 15 MINUTES THEN ROLLED TO LEFT SIDE
[2020-02-23 16:00] VITALS: BP 116/64
--- NOTE | 2020-02-23 19:03 | NUR ---
PT AWAKE ALERT AND ORIENTED AT THIS TIME, O2 AT 2L VIA NC POX 95%, VITALS STABLES, PT ENCOURGAED TO PRONE AND STATED HE WILL WHEN HES READY FOR BED
--- NOTE | 2020-02-23 19:30 | NUR ---
NOTIFIED PER REQUEST SHE DOES NOT WISH TO ADD TOSILUZUMAB TO PTS TX PLAN WILL CONTINUE TO MONITOR CLOSELY
[2020-02-23 20:00] VITALS: BP 131/71
--- NOTE | 2020-02-23 20:30 | NUR ---
IN TO ASSESS PATIENT AT THIS TIME. PATIENT PLEASANT AND COOPERATIVE. NO DISTRESS NOTED. 2L NC INTACT PATIENT DENIES ANY SHORTNESS OF BREATH AT THIS TIME. STATES THAT HE IS FEELING BETTER. HE STATED THAT "OLRANDO" STATED HE COULD'VE LEFT TODAY IF IT WASN'T FOR HIM BEING IN AFIB HE STATED SHE SAID SHE WOULD'VE WROTE HIM A SCRIPT FOR OXYGEN AND SENT HIM HOME BUT WANTED TO WATCH HIM ONE MORE NIGHT. VITAL SIGNS STABLE. LUNGS ARE DIMINISHED. PATIENT DENIES ANY ISSUES WITH AMBULATION. DENIES DIZZYNESS. DENIES PAIN. CALL LIGHT WITHIN REACH, WILL MONITOR
--- NOTE | 2020-02-23 21:30 | NUR ---
ENCOURAGED PATIENT TO SELF PRONE. PATIENT STATES HE CAN ONLY DO IT FOR A SHORT PERIOD OF TIME, BUT HE TRIES.
[2020-02-24] VITALS: BP 104/40
--- NOTE | 2020-02-24 01:31 | NUR ---
PATIENT SLEEPING. NO DISTRESS NOTED. BREATHING IS EASY AND REGULAR. 2L NC INTACT 96% OXYGENATION ON CONTINUOUS PULSE OX. CALL LIGHT WITHIN REACH, WILL MONITOR
--- NOTE | 2020-02-24 02:53 | NUR ---
PATIENT REMAINS ASLEEP. PULSE OX 97% MAINTAINED ON 2L. CALL LIGHT WITHIN REACH, WILL MONITOR
--- NOTE | 2020-02-24 03:23 | NUR ---
PRN RESTORIL GIVEN FOR PT COMPLAINTS OF SLEEPLESSNESS. CALL LIGHT WITHIN REACH, WILL MONITOR
--- NOTE | 2020-02-24 04:00 | NUR ---
PRN MEDICATION APPEARS EFFECTIVE, PT SLEEPING. PULSE OX 93% ON 2L NC
--- NOTE | 2020-02-24 05:11 | NUR ---
24 HR chart check completed.
[2020-02-24 07:19] LABS: ALBUMIN 2.5 gm/dl (3.1-4.5); CREATININE 1.69 mg/dL (0.70-1.30); POTASSIUM 3.8 mmol/L (3.5-5.1); TOTAL PROTEIN 6.8 gm/dL (6.4-8.2)
[2020-02-24 07:34] LABS: HEMATOCRIT 38.3 % (42.0-52.0); MEAN CELL VOLUME 82.9 fl (80.0-94.0); MEAN CORPUSCULAR HGB 27.3 pg (27.0-31.0); MEAN CORPUSCULAR HGB CONC 32.9 g/dl (33.0-37.0); MEAN PLATELET VOLUME 11.6 fl (9.6-12.3); PLATELET COUNT AUTOMATED 154 10*3/uL (130-400); RED BLOOD COUNT 4.62 10*6/uL (4.50-5.90); RED CELL DISTRI WIDTH 12.7 % (0-14.5); WHITE BLOOD COUNT 6.4 10*3/uL (4.8-10.8)
[2020-02-24 08:00] VITALS: BP 121/64
--- NOTE | 2020-02-24 08:16 | NUR ---
PHYSICAL THERAPY Screen received pt admitted from home with pneumonia due to + test for COVID. Please consult PT if pt has a decline in functional status from baseline thank you. Gregoria Capps PT
[2020-02-24 08:48] LABS: PLATELET SUFFICIENCY NORMAL (NORMAL); TOTAL CELLS COUNTED 100 #CELLS
--- NOTE | 2020-02-24 09:00 | NUR ---
case management talks with patient's , she states patient will return home with her when he is discharged, she denies any home needs, case mangaement will follow
[2020-02-24 09:15] LABS: ABG BASE EXCESS -0.8 mmol/L (-2.0-2.0); ARTERIAL BLOOD GAS PH 7.48 (7.35-7.45)
[2020-02-24 12:00] VITALS: BP 105/64
--- NOTE | 2020-02-24 15:48 | NUR ---
Nursing screen received and chart reviewed. Patient admitted from home and is COVID-19 positive with acute respiratory failure with B/L PNA. If patient has a decline in ADLs, transfers, or functional mobility, please send OT orders. Kalpana Jones, OTR/L
[2020-02-24 16:00] VITALS: BP 117/58
[2020-02-24 16:41] LABS: ABG BASE EXCESS -1.3 mmol/L (-2.0-2.0); ARTERIAL BLOOD GAS PH 7.44 (7.35-7.45)
[2020-02-24 20:00] VITALS: BP 126/58
--- NOTE | 2020-02-24 23:00 | NUR ---
PATIENT'S BLOOD PRESSURE 96/40. MAP 59. HEART RATE 57. NOTIFIED DR CONTI HE STATED TO RETAKE BLOOD PRESSURE IN 30 MINUTES.
[2020-02-24 23:42] VITALS: BP 106/74
--- NOTE | 2020-02-24 23:43 | NUR ---
RETOOK PATIENT'S VITALS. BLOOD PRESSURE 106/74. MAP 85. HEART RATE 63 PER CM. RESPIRATIONS 18. TEMPERATURE 97.[address] CONTI NOTIFIED.
[2020-02-25] VITALS: BP 106/74
[2020-02-25 06:21] LABS: ALBUMIN 2.3 gm/dl (3.1-4.5); BILIRUBIN, DIRECT 0.3 mg/dL (0.0-0.2); CREATININE 1.5 mg/dL (0.70-1.30); POTASSIUM 3.9 mmol/L (3.5-5.1); TOTAL PROTEIN 6.9 gm/dL (6.4-8.2)
[2020-02-25 06:24] LABS: MEAN CELL VOLUME 81.9 fl (80.0-94.0); MEAN CORPUSCULAR HGB 27.6 pg (27.0-31.0); MEAN CORPUSCULAR HGB CONC 33.7 g/dl (33.0-37.0); MEAN PLATELET VOLUME 11.3 fl (9.6-12.3); PLATELET COUNT AUTOMATED 157 10*3/uL (130-400); RED BLOOD COUNT 4.64 10*6/uL (4.50-5.90); RED CELL DISTRI WIDTH 12.8 % (0-14.5); WHITE BLOOD COUNT 7.5 10*3/uL (4.8-10.8)
[2020-02-25 06:49] LABS: TOTAL CELLS COUNTED 100 #CELLS
[2020-02-25 06:50] LABS: PLATELET SUFFICIENCY NORMAL (NORMAL)
[2020-02-25 06:51] LABS: BURR CELLS FEW
[2020-02-25 08:00] VITALS: BP 116/62; BP 129/73
--- NOTE | 2020-02-25 09:16 | NUR ---
SPEECH PATHOLOGY Nursing screen completed. There are no reports of acute communication or swallowing difficulty. Patient is dx with COVID-19. Speech services no not appear indicated at this time however this dept. will remain available if future needs arise. SANDRINE ROBERSON MSCCC-PRIMARY TEACHER
[2020-02-25 10:22] LABS: ABG BASE EXCESS 0.2 mmol/L (-2.0-2.0); ARTERIAL BLOOD GAS PH 7.467 (7.35-7.45)
[2020-02-25 12:43] VITALS: BP 121/60
--- NOTE | 2020-02-25 12:45 | NUR ---
PATIENT STATES THAT HE REFUSES ARTERIAL LINE. PATIENT STATES HE WOULD RATHER BE STUCK FOR ABG EACH DAY. NOTIFIED
--- NOTE | 2020-02-25 14:00 | NUR ---
EDUCATED PATIENT ON IMPORTANCE OF LYING PRONE FOR SEVERAL HOURS PER DAY. PATIENT STATES HE UNDERSTANDS. AT THIS TIME, HE IS GOING TO SIT UP IN RECLINER FOR A WHILE. PT REMAINS ON 4L NC. POX 92-95%.
[2020-02-25 16:00] VITALS: BP 110/49
[2020-02-25 20:00] VITALS: BP 115/83
--- NOTE | 2020-02-25 20:30 | NUR ---
IN TO ASSESS PATIENT. PATIENT PLEASANT AND COOPERATIVE. STATES THAT HE FEELS ALOT BETTER THAN THE OTHER DAY. ON 4L NC. PATIENT STATES HE DOES GET SHORT OF BREATH WITH ANY EXERTION. PATIENT STATES HIS COUGH IS LOOSER THAN IT HAS BEEN AND FOR THE MOST PART HE IS COUGHING UP CLEAR MUCUS. PATIENTS LUNGS DIMINISHED T/O. DENIES N/V/D/C. NO EDEMA NOTED. EXNOURAGED PATIENT TO PRONE HIMSELF. HE STATED HE IS TRYING BUT IT IS DIFFICULT BECAUSE HE STATES HE HAS A BIGGER BELLY. PATIENT STATES HE IS GETTING HIS APPETITE BACK. PATIENT PROVDIED MITZY CRACKERS AND MILK AT THIS TIME PER REQUEST HE WANTED TO TRY TO EAT A LITTLE BIT MORE. LEFT PATIENT WITHIN REACH OF CALL LIGHT. WILL CONTINUE TO MONITOR
--- NOTE | 2020-02-25 23:52 | NUR ---
NOTIFIED DR. CONTI OF PATIENT HAVING A QUICK BURST OF SVT. PATIENT HAD PREVIOUS EPISODE OF SVT ON 02/23/20. PATIENT SLEEPING AND ASYMPTOMATIC. NO NEW ORDERS RECIEVED
[2020-02-26] VITALS: BP 106/42
--- NOTE | 2020-02-26 03:16 | NUR ---
AT THIS TIME PATIENT IN DEEP SLEEP LYING ON BACK. PULSE OX DROPPED TO 86% AND THEN MAINTAINED BETWEEN 88-91%. ENTERED PATIENT ROOM AND ENCOURAGED PATIENT TO LIE ON SIDE OR STOMACH. PATIENT STATED HE DOESN'T NORMALLY LAY ON HIS BACK. PATIENT ALSO DENIED ANY HISTORY OF SLEEP APNEA AND STATED HE WAS EVEN TESTED. PATIENT THEN REQUESTED TO HAVE ICE WATER AND A GRAPE JUICE. PATIENT STILL MAINTAINING BETWEEN 88-91%. NOTIFIED RESPIRATORY AND WAS ADVISED TO INCREASE TO 6L AT THIS TIME. PATIENT INCREASED TO 6L AND AND 95% ON PATIENT PULSE OX WAS ACHIEVED. PATIENT DENIED ANY TROUBLE BREATHING AND EXPECTORATED LARGE AMOUNT OF SPUTUM AFTER SITTING ON THE SIDE OF THE BED. PATIENT CONTINUES TO BE ASYMPTOMATIC AND DENY ANY TROUBLES. CALL LIGHT WITHIN REACH, WILL MONITOR
--- NOTE | 2020-02-26 03:40 | NUR ---
PATINET CONTINUES TO MAINTAIN 95-96% ON 6L NC
[2020-02-26 05:12] LABS: ALBUMIN 2.3 gm/dl (3.1-4.5); CREATININE 1.42 mg/dL (0.70-1.30); TOTAL PROTEIN 6.6 gm/dL (6.4-8.2)
--- NOTE | 2020-02-26 05:49 | NUR ---
ATTEMPTED TO CONTACT DR. EASTON AT THIS TIME PERTAINING TO PATIENTS OXYGEN REQUIREMENTS AND PULSE OX LEVEL. NO ANSWER. WILL RETRY
[2020-02-26 06:16] LABS: MEAN CELL VOLUME 81.3 fl (80.0-94.0); MEAN CORPUSCULAR HGB 27.1 pg (27.0-31.0); MEAN CORPUSCULAR HGB CONC 33.3 g/dl (33.0-37.0); MEAN PLATELET VOLUME 10.9 fl (9.6-12.3); PLATELET COUNT AUTOMATED 180 10*3/uL (130-400); RED BLOOD COUNT 4.43 10*6/uL (4.50-5.90); RED CELL DISTRI WIDTH 12.6 % (0-14.5); WHITE BLOOD COUNT 6.2 10*3/uL (4.8-10.8)
--- NOTE | 2020-02-26 06:41 | NUR ---
NOTIFIED DR. EASTON OF INCREASE IN OXYGEN THIS MORNING AT 3AM. NOTIFIED HIM ATIENT IS CURRENTLY 6L NC AT SATTING 96%. NOTIFIED HIM THAT EVEN ON THE 6L WHILE PATIENT IS LAYING ON THE RIGHT SIDE AND ON HIS BACK HE MAINTAINS 90% BUT WHILE ON HIS LEFT SIDE HE HAS MAINTAINED 96%. ORDER RECIEVED FOR A CHEST XRAY NOW AND THAT THE PATIENT IS ALREADY ORDERED A BLOOD GAS THIS MORNING
--- NOTE | 2020-02-26 07:30 | NUR ---
PATIENT CURRENTLY ON 6LNC. CONT.PULSE OX MAINTAINED. POX RANGING BETWEEN 91-88% VIA 6LNC. AWAITING ABG RESULTS. NO DISTRESS NOTED AT REST. CALL LIGHT WITHIN REACH.
[2020-02-26 07:41] LABS: TOTAL CELLS COUNTED 100 #CELLS
[2020-02-26 07:42] LABS: BURR CELLS MODERATE; PLATELET SUFFICIENCY NORMAL (NORMAL)
[2020-02-26 08:00] VITALS: BP 126/77
[2020-02-26 08:08] LABS: ABG BASE EXCESS 1.5 mmol/L (-2.0-2.0); ARTERIAL BLOOD GAS PH 7.513 (7.35-7.45)
--- NOTE | 2020-02-26 08:44 | NUR ---
PATIENT PLACED ON 8L HIGH-FLOW NC PER RT AT THIS TIME DUE TO ABG RESULTS. PT DENIES ANY SOB AT REST. LUNGS DIMINISHED T/O. PRODUCTIVE COUGH PER PT. WILL CONTINUE TO MONITOR. CALL LIGHT WITHIN REACH. SEE SHIFT ASSESSMENT.
--- NOTE | 2020-02-26 09:28 | NUR ---
HERE AND UPDATED ON PLAN OF CARE.
--- NOTE | 2020-02-26 09:30 | NUR ---
PATIENT WILL BE MADE ICU PER . REPORT GIVEN TO JOI WAYNE.
--- NOTE | 2020-02-26 10:00 | NUR ---
patient requiring more oxygen at this time, discharge plan was for patient tor return home with , case management will follow and will monitor for appropriate discharge plans
--- NOTE | 2020-02-26 10:30 | NUR ---
PT PLACED ON BIPAP BY RESPIRATORY THERAPY PER ORDER OF DR EASTON AT THIS TIME.
--- NOTE | 2020-02-26 10:30 | NUR ---
pt placed on bipap per dr loredo. pt tolerating well. 27/03 40%, spo2 98%, hr 67.
[2020-02-26 11:37] VITALS: BP 119/68
--- NOTE | 2020-02-26 12:54 | NUR ---
PT TAKEN OFF BIPAP AFTER ABG DRAWEN.
[2020-02-26 13:03] LABS: ABG BASE EXCESS 0.9 mmol/L (-2.0-2.0); ARTERIAL BLOOD GAS PH 7.509 (7.35-7.45)
[2020-02-26 15:32] VITALS: BP 142/76
--- NOTE | 2020-02-26 15:53 | NUR ---
PLACED PT ON BIPAP.
--- NOTE | 2020-02-26 16:00 | NUR ---
Patient resting quietly with no c/o discomfort. Respirations easy and regular. Vital signs stable. No overt distress. SALVADOR NORMAN
--- NOTE | 2020-02-26 18:00 | NUR ---
DESATING DURING TRANSFER AND EATING. PT'S O2 TURNED UP TO 10LPM VIA HF NC.
--- NOTE | 2020-02-26 18:35 | NUR ---
PT HAS RECOVERED FROM 85% TO 95% WHILE IN CHAIR AND AT REST ON 1LPM VIA HFNC.
--- NOTE | 2020-02-26 19:30 | NUR ---
24 HR chart check completed.
[2020-02-26 20:00] VITALS: BP 139/69
--- NOTE | 2020-02-26 20:31 | NUR ---
Patient lying in bed, asked questions about the bipap. I told him he needs to wear as much as possible and he is in agreement. Patient denies any shortness of breath while resting does get short of breath with exertion. Patient denies any pain. Patient on 8L highflo, pox 92-95%. Patient left with call light in reach, also in view of camera.
--- NOTE | 2020-02-26 21:45 | NUR ---
PLACED PATIENT ON BIPAP
--- NOTE | 2020-02-26 23:38 | NUR ---
Patient requested to have bipap taken off, and would like it put back on at midnight.
[2020-02-27] VITALS (21 sets, daily range): BP systolic 101–139; BP diastolic 44–81
--- NOTE | 2020-02-27 00:13 | NUR ---
Patient didnt want on bipap at this time, is on 10L high flow pox 96%. Patient states he will prone through the night.
--- NOTE | 2020-02-27 00:30 | NUR ---
Patient now has agreed to wear bipap. Stated he will try to wear the rest of the night.
--- NOTE | 2020-02-27 02:09 | NUR ---
Patient requested off bipap again. Stated hes had enough, and also said that he thought he did good wearing it this time. Patient placed back on 10L high flow. pox 96%
--- NOTE | 2020-02-27 02:29 | NUR ---
Called into patients room and he stated he is having trouble breathing, pox 96% on 10L high jeanne. Placed back on bipap.
--- NOTE | 2020-02-27 06:33 | NUR ---
Patient has worn the bipap since 230am. Asked to have it off for a drink, and morning meds. Once off pox dropped to 80%, patient placed back on bipap, now pox 93%
[2020-02-27 06:47] LABS: BASO % 0.1 % (0.0-1.0); EOS % 0.2 % (1.0-4.0); HEMATOCRIT 39.1 % (42.0-52.0); LYMPH # 0.5 10*3/uL (1.3-4.4); LYMPH % 6.1 % (27.0-41.0); MEAN CORPUSCULAR HGB 27.3 pg (27.0-31.0); MEAN CORPUSCULAR HGB CONC 33.8 g/dl (33.0-37.0); MEAN PLATELET VOLUME 10.6 fl (9.6-12.3); MONO # 0.4 10*3/uL (0.1-1.0); MONO % 4.3 % (3.0-9.0); NEUT # 7.4 10*3/uL (2.3-7.9); NEUT % 88.5 % (47.0-73.0); RED BLOOD COUNT 4.83 10*6/uL (4.50-5.90); RED CELL DISTRI WIDTH 12.5 % (0-14.5); WHITE BLOOD COUNT 8.4 10*3/uL (4.8-10.8)
[2020-02-27 06:50] LABS: PLATELET COUNT AUTOMATED 268 10*3/uL (130-400)
[2020-02-27 06:59] LABS: ALBUMIN 2.4 gm/dl (3.1-4.5); BUN 35 mg/dl (7-24); CHLORIDE 108 mmol/L (98-107); CREATININE 1.35 mg/dL (0.70-1.30); LDH 580 U/L (87-241); SGOT/AST 101 IU/L (3-35); SGPT/ALT 87 U/L (12-78); SODIUM 140 mmol/L (136-145); TOTAL PROTEIN 6.9 gm/dL (6.4-8.2)
[2020-02-27 07:00] LABS: ALKALINE PHOSPHATASE 75 U/L (45-117)
--- NOTE | 2020-02-27 07:50 | NUR ---
RESTING IN BED WITH BI-PAP ON. ALERT AND ORIENTED TIMES THREE. GIVEN PO MED'S AND WITHIN 2 MINUTES OF TAKING OFF BI-PAP PULSE OX DROPPED TO 86% AND WAS BEGGING TO HAVE BI-PAP PLACED BACK ON. ENCOURAGED MULTIPLE TIMES TO SELF PRONE WHILE IN ROOM. SPOKE OF INTUBATION IF IT BECOMES NECESSARY. HE STATES "I DON'T WANT THAT TUBE." I EXPLAIN THAT YOU MAY . HE STATES THEN "WELL, THEN WE WILL TALK." LUNGS DIMINISHED BILATERALLY. NO EDEMA NOTED. HEP LOCK INTACT TO LEFT ARM. NO EDEMA NOTED. AFEBRILE. BP 123/52
--- NOTE | 2020-02-27 08:00 | NUR ---
DR GUERRERO NOTIFIED OF QTC BEING 515 THIS AM. ORDER TO DC PLAQUENIL.
[2020-02-27 08:04] LABS: ABG BASE EXCESS 0.7 mmol/L (-2.0-2.0); ARTERIAL BLOOD GAS PH 7.519 (7.35-7.45)
--- NOTE | 2020-02-27 09:00 | NUR ---
case management contacted patient's regarding discharge plan, educated her on a shelter facility and also an LTAC, stated she wanted patient to return home if able but if not she was agreeable to either a SNF or LTAC whatever one would benefit patient the most, gave choices of local SNF facilities and she stated [facility] for the [facility], case management and land planner will follow
--- NOTE | 2020-02-27 09:30 | NUR ---
DR. EASTON HERE TO SEE PATIENT. SPOKE WITH PATIENT AND WAS TOLD TO PRONE OR MAY BECOME INTUBATED TODAY. PLACED IN SELF PRONE POSITION AND PULSE OX 96%
--- NOTE | 2020-02-27 10:59 | NUR ---
Patients stating she spoke with patient who is agreeable to some type of rehab once discharged. [facility] to ask their policy for positive covid patients as they have never taken one. I also referred the patient to [facility] where they do take their positive covid patients. They are reviewing.
--- NOTE | 2020-02-27 11:00 | NUR ---
SAT UP TO GET A DRINK. ENCOURAGED PRONING. 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
[2020-02-27 11:17] LABS: ABG BASE EXCESS -0.3 mmol/L (-2.0-2.0); ARTERIAL BLOOD GAS PH 7.508 (7.35-7.45)
--- NOTE | 2020-02-27 11:40 | NUR ---
DR. EASTON NOTIFIED OF ABG RESULTS.
--- NOTE | 2020-02-27 11:50 | NUR ---
ATIVAN SEEMS EFFECTIVE. EYES CLOSED. REMAIN PRONED AND ON BI-PAP
--- NOTE | 2020-02-27 15:15 | NUR ---
CALLED INTO ROOM, WAS INCONTINENT OF URINE. SITTING ON SIDE OF BED HEART RATE INCREASED TO 130. COMPLETE BED AND BATH DONE. PLACED ON 10L HIGH FLOW NASAL CANNULA. GIVEN SIPS OF WATER. PLACED BACK ON BI-PAP AND PRONED.
--- NOTE | 2020-02-27 16:00 | NUR ---
DR. EASTON CALLED AND UPDATED ON CONDITION.
--- NOTE | 2020-02-27 17:15 | NUR ---
ABGS OBTAINED AFTER 2 HOURS ON BIPAP. PATIENT TAKEN OFF BIPAP AND PLACED ON 12L HFNC.
[2020-02-27 17:41] LABS: ABG BASE EXCESS -0.4 mmol/L (-2.0-2.0); ARTERIAL BLOOD GAS PH 7.505 (7.35-7.45)
[2020-02-27 18:27] LABS: ABG BASE EXCESS -0.1 mmol/L (-2.0-2.0); ARTERIAL BLOOD GAS PH 7.521 (7.35-7.45)
--- NOTE | 2020-02-27 18:41 | NUR ---
DR. EASTON NOTIFIED OF ABG RESULTS. ORDERS RECEIVED TO INTUBATE
--- NOTE | 2020-02-27 19:15 | NUR ---
DR. GUERRERO NOTIFIED THAT PATIENT IS GOING TO BE INTUBATED
--- NOTE | 2020-02-27 19:40 | NUR ---
VERBAL CONSENT FOR INTUBATION RECEIVED FROM PATIENT. HE ALSO HAS AGREED FOR ART LINE AND MLC INSERTION.
--- NOTE | 2020-02-27 19:45 | NUR ---
Pt intubated with a size 8.0 tube and 24cm at the top lip. BBS were heard after intubation. CO2 monitor was reading 49. Chest x-ray will be ordered after all lines are placed. No comps. Pt placed on vent settings per of [id number] SpO2 is 100% We will obtain an ABG 2 hours post intubation. Size 2 Dennis blade was used.
--- NOTE | 2020-02-27 20:52 | NUR ---
1929 - PT. VERY SOB, LABORED RESPIRATONS. PT. PREPARED FOR INTUBATION, AWAITING TOBIN PIERCE, ANESTHESIA. CONSENT BY AND PATIENT FOR INTUBATION VERBALLY. 1939 - PT. INTUBATED WITH #8, 23CMS AT THE LIP ON FIRST ATTEMPT. VENTILATOR SETTINGS PER DR. EASTON. TV 525, CMV 26, 100% FIO2 AND PEEP 10. 1944 - TOBIN PIERCE ATTEMPTING ART LINE IN LEFT RADIAL. AFTER MULTIPLE TRIES ART LINE INSERTED, DRESSED, LEVELED AND ZEROED. 2044 - FOLLOWING ART LINE INSERTION, MLC ATTEMPT IN PROCESS.
--- NOTE | 2020-02-27 21:32 | NUR ---
TALKED WITH PATIENTS REGARDING TRANSFER TO [facility], AGREEABLE TO TRANSFER. GAGE TOVAR RN
[2020-02-27 22:05] LABS: ABG BASE EXCESS -2.4 mmol/L (-2.0-2.0); ARTERIAL BLOOD GAS PH 7.384 (7.35-7.45)
--- NOTE | 2020-02-27 22:33 | NUR ---
DR. EASTON NOTIFIED OF ABG RESULTS AND INTENT TO TRANSFER PATIENT TO [facility]. GAGE TOVAR RN
--- NOTE | 2020-02-27 23:30 | NUR ---
REPORT GIVEN TO SAMI LOUIS RN. AWAITING AMBULANCE FOR DEPARTURE. GAGE TOVAR RN
--- NOTE | 2020-02-27 23:30 | NUR ---
Advanced pts endotracheal tube from 24cm to 27cm per radiology report. Tube secured. No comps.
--- NOTE | 2020-02-27 23:51 | NUR ---
CLEARED TRANSPORTATION METHOD VIA [facility] CREW THROUGH DR. CONTI. PT. PREPARED FOR TRANSFER. ALL BELONGINGS BAGGED TO BE SENT WITH PATIENT. VS STABLE GAGE TOVAR RN
--- NOTE | 2020-02-27 23:54 | NUR ---
SAMI MARISOL NOTIFIED THAT PATIENT WOULD BE FLYING INSTEAD OF GROUND TRANSPORTATION. GAGE TOVAR RN
[2020-02-28] VITALS: BP 106/60; BP 107/61
[2020-02-28 00:10] VITALS: BP 104/59
[2020-02-28 00:15] VITALS: BP 106/61
[2020-02-28 00:29] VITALS: BP 108/62
--- NOTE | 2020-02-28 01:26 | NUR ---
PT. TRANSFERRED VIA [facility]. ALL BELONGINGS SENT WITH PATIENT. VS STABLE UPON DEPARTURE. GAGE TOVAR RN
== END 2020-02-28 01:26 | disposition short-term general hospital (02) | DRG 208 ==
LOC: ED 18:50 → 4E 21:37 → EDHOLD 21:37 → 4E 21:55
PROVIDERS: Emergency Medicine Emergency Medical Services; Internal Medicine; Internal Medicine Critical Care Medicine; ADMIT Internal Medicine
PROC: 4A133B1 Monitoring of Arterial Pressure, Peripheral, Percutaneous Approach (ICD-10-PCS; principal; 2020-02-27)
PROC: 05HM33Z Insertion of Infusion Device into Right Internal Jugular Vein, Percutaneous Approach (ICD-10-PCS; principal; 2020-02-27)
PROC: 0BH17EZ Insertion of Endotracheal Airway into Trachea, Via Natural or Artificial Opening (ICD-10-PCS; principal; 2020-02-27)
PROC: 5A09357 Assistance with Respiratory Ventilation, Less than 24 Consecutive Hours, Continuous Positive Airway Pressure (ICD-10-PCS; principal; 2020-02-27)
PROC: B543ZZA Ultrasonography of Right Jugular Veins, Guidance (ICD-10-PCS; principal; 2020-02-27)
PROC: 5A1935Z Respiratory Ventilation, Less than 24 Consecutive Hours (ICD-10-PCS; principal; 2020-02-27)
PROC: 4A133J1 Monitoring of Arterial Pulse, Peripheral, Percutaneous Approach (ICD-10-PCS; principal; 2020-02-27)
PROC: 03HY32Z Insertion of Monitoring Device into Upper Artery, Percutaneous Approach (ICD-10-PCS; principal; 2020-02-27)
DX: U07.1 COVID-19 (principal); J12.89 Other viral pneumonia; N17.0 Acute kidney failure with tubular necrosis; G93.41 Metabolic encephalopathy; J96.01 Acute respiratory failure with hypoxia; D61.818 Other pancytopenia; E44.0 Moderate protein-calorie malnutrition; D68.59 Other primary thrombophilia; E11.65 Type 2 diabetes mellitus with hyperglycemia; I48.0 Paroxysmal atrial fibrillation; K76.0 Fatty (change of) liver, not elsewhere classified; E83.42 Hypomagnesemia; K21.9 Gastro-esophageal reflux disease without esophagitis; R70.0 Elevated erythrocyte sedimentation rate; Z66 Do not resuscitate; Z51.5 Encounter for palliative care; E83.39 Other disorders of phosphorus metabolism; E87.6 Hypokalemia; F41.1 Generalized anxiety disorder; I12.9 Hypertensive chronic kidney disease with stage 1 through stage 4 chronic kidney disease, or unspecified chronic kidney disease; N18.3 Chronic kidney disease, stage 3 (moderate); Z96.653 Presence of artificial knee joint, bilateral; Z82.49 Family history of ischemic heart disease and other diseases of the circulatory system; Z80.0 Family history of malignant neoplasm of digestive organs; Z79.82 Long term (current) use of aspirin; Z79.899 Other long term (current) drug therapy; Z79.01 Long term (current) use of anticoagulants; Z79.84 Long term (current) use of oral hypoglycemic drugs; Z68.31 Body mass index [BMI] 31.0-31.9, adult